=== PATIENT | female | born 1965 | race Caucasian/White ===

== ENCOUNTER 2020-07-21 09:17 | Outpatient (CLI) | payer OTHER, SELFPAY ==
--- NOTE | ~2020-07-21 | XR_ITS ---
EXAMINATION: XR chest 2V 07/21/2020 09:50 INDICATION: Shortness of breath PROCEDURE: 2 view chest COMPARISON: No prior studies for comparison. FINDINGS: The lungs are clear. The cardiomediastinal silhouette is within normal limits. There are no pleural effusions. There is no pneumothorax suspected. IMPRESSION: 1: NO ACUTE CARDIOPULMONARY DISEASE. Reviewed, dictated and finalized at location B. RIBUTION TECH
--- NOTE | ~2020-07-21 | US_ITS ---
US abdomen complete EXAMINATION: US Abdomen Complete INDICATION: Abdominal pain and bloating PROCEDURE: Realtime High Resolution abdomen ultrasound. COMPARISON: No prior studies for comparison FINDINGS: Gallbladder is surgically absent. Common bile duct measures 11 mm mm. Liver echotexture within normal limits without focal mass. Pancreas within normal limits. Pancreati c tail is obscured by bowel gas. Spleen is unremarkeable. Renal echotexture is within normal limits bilaterally without hydronephrosis, contour deforming mass or renal stone. Right kidney measures 9.6 cm. Left kidney measures 10.6 cm. Visualized aspects of the aorta and IVC are within normal limits. Portal vein is patent. No sonograph ic Romero's sign indicated by the technologist. IMPRESSION: 1: Unremarkable abdominal ultrasound post cholecystectomy. Reviewed, dictated and finalized at location B. [employer]
== END 2020-07-21 09:18 ==
PROVIDERS: PCP Nurse Practitioner Family; Visit Provider Nurse Practitioner Family
DX: R10.9 Unspecified abdominal pain (principal); R06.02 Shortness of breath
CPT/HCPCS: 71046; 76700

== ENCOUNTER → 2020-08-27 12:22 | Outpatient (CLI) | payer OTHER, SELFPAY ==
--- NOTE | ~2020-08-27 | MM_ITS ---
EXAMINATION: MM screening mili BI w main HISTORY: Screening TECHNIQUE: Craniocaudal and mediolateral oblique 3-D tomosynthesis images were obtained and synthetic 2-D images were generated. CAD analysis was submitted and interpreted. COMPARISON: No prior mammogram is available for comparison at this institution. BREAST PARENCHYMAL COMPOSITION: Breast composed of scattered areas of fibroglandular density. FINDINGS: There are masses in the upper outer quadrant of the right breast, middle third. There are n o suspicious masses, calcifications or architectural distortion in the left breast to suggest maligna ncy. IMPRESSION: 1. Right breast masses, upper outer quadrant. 2. Additional mammographic views and possible breast ultrasound are recommended. BI-RADS Category 0: Incomplete: Needs additional imaging evaluation. Reviewed, dictated and finalized at location A. IMPRESSION: 1. Right breast masses, upper outer quadrant. 2. Additional mammographic views and possible breast ultrasound are recommended . BI-RADS Category 0: Incomplete: Needs additional imaging evaluation.
== END ==
PROVIDERS: Visit Provider Nurse Practitioner Family
DX: Z12.31 Encounter for screening mammogram for malignant neoplasm of breast (principal); R92.8 Other abnormal and inconclusive findings on diagnostic imaging of breast
CPT/HCPCS: 77063; 77067